=== PATIENT | female | born 1990 | race Caucasian/White ===

== ENCOUNTER 2016-12-23 23:08 | Emergency (ER) | payer MEDICAID ==
[2016-12-24] MEDS ORDERED: NORMAL SALINE 1000 ML 1,000 ML IV ONE ×3 (04:09→06:52)
[2016-12-24] MEDS ORDERED: DIPHENHYDRAMINE HCL 50 MG/ML VIAL IV ONE (04:09)
[2016-12-24] MEDS ORDERED: METOCLOPRAMIDE HCL INJ/PF 10 MG/2 ML SDV IV ONE (04:09)
--- NOTE | 2016-12-24 04:32 | ER Document Report ---
ED GI/ - General Chief Complaint: Nausea/Vomiting Stated Complaint: VOMITING Notes: Patient is a 26 year old female that comes emergency department for chief complaint of nausea and vomiting, she is at about 3-4 weeks reportedly , , has seen [facility] and has begun taking Zofran but states this time it does not work. Patient has had this problem in the past. She denies any vaginal bleeding, fever, she states she has mild congestion of a cold which has also developed today. She denies cough or shortness of breath. TRAVEL OUTSIDE OF THE [place] IN LAST 30 DAYS: No - Related Data Allergies/Adverse Reactions: No Known Allergies Allergy (Verified 12/23/16 23:22) Past Medical History - General Information source: Patient - Social History Smoking Status: Never Smoker Frequency of alcohol use: None Drug Abuse: None Lives with: Family Family History: Reviewed & Not Pertinent Renal/ Medical History: Reports: Hx Kidney Stones. Denies: Hx Peritoneal Dialysis Past Surgical History: Reports: Hx Orthopedic Surgery - shoulder - Immunizations Immunizations up to date: Yes Hx Diphtheria, Pertussis, Tetanus Vaccination: Yes Review of Systems - Review of Systems Constitutional: No symptoms reported EENT: No symptoms reported Cardiovascular: No symptoms reported Respiratory: No symptoms reported Gastrointestinal: See HPI Genitourinary: No symptoms reported Female Genitourinary: See HPI Musculoskeletal: No symptoms reported Skin: No symptoms reported Hematologic/Lymphatic: No symptoms reported Neurological/Psychological: No symptoms reported Physical Exam - Vital signs Vitals: Temp Pulse BP Pulse Ox 98.4 F 65 118/56 L 99 12/23/16 23:23 12/23/16 23:23 12/23/16 23:23 12/23/16 23:23 Interpretation: Normal - General General appearance: Appears well, Alert In distress: None - Patient appears tired but does not appear to be in any distress - HEENT Head: Normocephalic, Atraumatic Eyes: Normal Conjunctiva: Normal Extraocular movements intact: Yes Eyelashes: Normal Pupils: PERRL Mucous membranes: Dry Pharynx: Normal Neck: Normal - Respiratory Respiratory status: No respiratory distress Chest status: Nontender Breath sounds: Normal Chest palpation: Normal - Cardiovascular Rhythm: Regular. No: Tachycardia Heart sounds: Normal auscultation, S1 appreciated, S2 appreciated Murmur: No - Abdominal Inspection: Normal Distension: No distension Bowel sounds: Normal Tenderness: Tender - Patient with generalized abdominal tenderness, mild, nonspecific, no guarding Organomegaly: No organomegaly - Back Back: Normal, Nontender. No: Tender - Extremities General upper extremity: Normal inspection, Nontender, Normal strength, Normal temperature General lower extremity: Normal inspection, Nontender, Normal strength, Normal temperature - Neurological Neuro grossly intact: Yes Cognition: Normal Orientation: AAOx4 [place] Coma Scale Eye Opening: Spontaneous [place] Coma Scale Verbal: Oriented [place] Coma Scale Motor: Obeys Commands Corin Coma Scale Total: 15 Speech: Normal Cranial nerves: Normal Cerebellar coordination: Normal Motor strength normal: LUE, RUE, LLE, RLE Additional motor exam normals: Equal manganese breaker Sensory: Normal - Psychological Associated symptoms: Normal affect, Normal mood - Skin Skin Temperature: Warm Skin Moisture: Dry Skin Color: Normal Course - Re-evaluation Re-evalutation: Patient not tachycardic, has very mild abdominal tenderness, laboratory workup is unremarkable. No fever. After IV fluids, medications, patient states she feels much improved, she drank and tolerated rome donald without any difficulty. Patient is requesting to leave, has not given a urine sample yet, however she is requesting to leave. No dysuria or flank pain, no fever. Provided with Reglan, follow-up instructions: Return precautions, patient states understanding and agreement. - Vital Signs Vital signs: Temp Pulse Resp BP Pulse Ox 98.4 F 65 118/56 L 99 12/23/16 23:23 12/23/16 23:23 12/23/16 23:23 12/23/16 23:23 - Laboratory Result Diagrams: 12/24/16 04:40 12/24/16 04:40 Laboratory results interpreted by me: 12/24/16 12/24/16 04:40 04:40 Hct 35.9 L Creatinine 0.44 L Beta HCG, Quant 099209.00 H Discharge - Discharge Clinical Impression: Nausea and vomiting during prior to 22 weeks gestation Condition: Stable Disposition: HOME, SELF-CARE Additional Instructions: Take the Reglan as prescribed, I recommend taking 25 mg of diphenhydramine/ Benadryl with this at the same time Start with bland foods, continue to hydrate, follow up with [facility]. Return to the emergency department for any concerning or worsening symptoms. Prescriptions: Metoclopramide HCl [Reglan] 5 mg PO ASDIR PRN #30 tablet PRN Reason:
[2016-12-24 04:54] LABS: ABSOLUTE EOSINOPHILS # (AUTO) 0.2 10^3/uL (0.0-0.6); ABSOLUTE LYMPHOCYTES (AUTO) 2.9 10^3/uL (0.5-4.7); ABSOLUTE MONOCYTES (AUTO) 0.6 10^3/uL (0.1-1.4); ABSOLUTE NEUT (AUTO) 5.7 10^3/uL (1.7-8.2); BASOPHILS % (AUTO) 0.5 % (0-2); EOSINOPHILS % (AUTO) 2.1 % (0-6); HEMATOCRIT 35.9 % (36.0-47.0); HEMOGLOBIN 12.3 g/dL (12.0-15.5); LYMPHOCYTES % (AUTO) 30.8 % (13-45); MEAN CORPUSCULAR HEMOGLOBIN 30.8 pg (27.0-33.4); MEAN CORPUSCULAR HGB CONC 34.1 g/dL (32.0-36.0); MEAN CORPUSCULAR VOLUME 90 fl (80-97); MONOCYTES % (AUTO) 5.9 % (3-13); RED BLOOD COUNT 3.98 10^6/uL (3.72-5.28); RED CELL DISTRIBUTION WIDTH 12.4 % (11.5-14.0); SEGMENTED NEUTROPHILS % (AUTO) 60.7 % (42-78); WHITE BLOOD COUNT 9.5 10^3/uL (4.0-10.5)
[2016-12-24 05:14] LABS: ALANINE AMINOTRANSFERASE 29 U/L (9-52); ALBUMIN 3.8 g/dL (3.5-5.0); ALKALINE PHOSPHATASE 58 U/L (38-126); ANION GAP 13 (5-19); ASPARTATE AMINO TRANSFERASE 19 U/L (14-36); BILIRUBIN,DIRECT 0.3 mg/dL (0.0-0.4); BILIRUBIN,TOTAL 0.6 mg/dL (0.2-1.3); BLOOD UREA NITROGEN 8 mg/dL (7-20); CALCIUM 9.3 mg/dL (8.4-10.2); CARBON DIOXIDE 24 mmol/L (22-30); CHLORIDE 102 mmol/L (98-107); CREATININE RESULT 0.44 mg/dL (0.52-1.25); GLUCOSE 93 mg/dL (75-110); SODIUM 138.5 mmol/L (137-145); TOTAL PROTEIN 6.6 g/dL (6.3-8.2)
[2016-12-24 08:08] VITALS: BP 90/50
== END 2016-12-24 07:35 | disposition home or self-care (01) ==
LOC: ER 23:08
DX: O21.9 Vomiting of pregnancy, unspecified (principal); Z87.442 Personal history of urinary calculi
CPT/HCPCS: 99284; 96361; 96374; 96375; 36415; 84702; 85025; 80053; J1200; J2765; J7030

== ENCOUNTER 2017-05-24 10:32 | Outpatient (CLI) | payer MEDICAID ==
[2017-05-24 11:46] LABS: APPEARANCE,URINE SLIGHTLY-CLOUDY; BILIRUBIN,URINE NEGATIVE (NEGATIVE); GLUCOSE, URINE NEGATIVE (NEGATIVE); KETONES,URINE NEGATIVE (NEGATIVE); LEUKOCYTE ESTERASE,URINE NEGATIVE (NEGATIVE); NITRITE,URINE NEGATIVE (NEGATIVE); PROTEIN,URINE NEGATIVE (NEGATIVE)
[2017-05-24] MEDS ORDERED: ONDANSETRON 4 MG TAB.RAPDIS ONE (11:58)
[2017-05-24 12:08] LABS: URINE BARBITURATES SCREEN NEGATIVE; URINE METHADONE SCREEN NEGATIVE; URINE OPIATES LOW NEGATIVE; URINE PHENCYCLIDINE SCREEN NEGATIVE
--- NOTE | 2017-05-24 12:41 | Non Stress Test Report ---
Non Stress Test Datetime Report Generated by CPN: 05/24/2017 12:41 DEMOGRAPHIC EGA NST: 33.5 INDICATION Indication for Study: Ordered by Provider MONITORING Monitor Explained: Monitor Explained; Test Explained; Patient Verbalized Understanding Time on Monitor: 05/24/2017 11:11 Time off Monitor: 05/24/2017 12:37 NST Duration: 86 NST INTERVENTIONS NST Interventions: PO Hydration; Reposition Patient Physician Notified NST: J. Carlos, CNM BABY A: [id number] BABY A Movement : Present Contraction Frequency : Irritability FHR Baseline : 125 Accelerations : 15X15 Decelerations : None Variability : Moderate 6-25bpm NST Review: Meets Criteria for Reactive NST NST Review and Verified By : Juanita camp RNC NST Results: Reactive NST REPORT Report Trigger: Send Report
== END 2017-05-24 12:45 | disposition home or self-care (01) ==
LOC: LC 10:32
PROVIDERS: ATTEND Student in an Organized Health Care Education/Training Program
PROC: 4A1HXCZ Monitoring of Products of Conception, Cardiac Rate, External Approach (ICD-10-PCS; principal; 2017-05-24)
DX: O21.2 Late vomiting of pregnancy (principal); E86.0 Dehydration; Z3A.33 33 weeks gestation of pregnancy
CPT/HCPCS: 81001; 80307; 59025; S0119

== ENCOUNTER 2017-05-29 17:38 | Outpatient (CLI) | payer MEDICAID ==
--- NOTE | 2017-05-29 18:38 | Non Stress Test Report ---
Non Stress Test Datetime Report Generated by CPN: 05/29/2017 18:38 DEMOGRAPHIC EGA NST: 34.3 INDICATION Indication for Study: Ordered by Provider Indication for Study (NST) Other: Repeat MONITORING Monitor Explained: Monitor Explained; Test Explained; Patient Verbalized Understanding Time on Monitor: 05/29/2017 18:03 Time off Monitor: 05/29/2017 18:33 NST Duration: 30 NST INTERVENTIONS NST Interventions: PO Hydration; Reposition Patient Physician Notified NST: Dr. Carrera BABY A: [id number] BABY A Movement : Present Contraction Frequency : none FHR Baseline : 135 Accelerations : 15X15 Decelerations : None Variability : Moderate 6-25bpm NST Review: Meets Criteria for Reactive NST NST Review and Verified By : Eladia Bellavanctonya RNC NST Results: Reactive NST REPORT Report Trigger: Send Report
== END 2017-05-29 18:37 | disposition home or self-care (01) ==
LOC: LC 17:38
PROVIDERS: ATTEND Student in an Organized Health Care Education/Training Program
PROC: 4A1HXCZ Monitoring of Products of Conception, Cardiac Rate, External Approach (ICD-10-PCS; principal; 2017-05-29)
DX: Z34.93 Encounter for supervision of normal pregnancy, unspecified, third trimester (principal); Z36.89 Encounter for other specified antenatal screening; Z3A.34 34 weeks gestation of pregnancy
CPT/HCPCS: 59025

== ENCOUNTER 2017-07-14 18:05 | Inpatient (IN) | payer MEDICAID ==
[2017-07-14] MEDS ORDERED: RINGERS SOLUTION,LACTATED 1,000 ML IV PRN (18:17)
[2017-07-14] MEDS ORDERED: DINOPROSTONE 10 MG VAGINAL INSERT.SR PV PRN (18:17)
[2017-07-14] MEDS ORDERED: RINGERS SOLUTION,LACTATED 300 ML IV ONE (18:17)
[2017-07-14] MEDS ORDERED: OXYTOCIN/NORMAL SALINE 20 UNIT/1,000 ML RTUINJ IV PRN (18:17)
[2017-07-14 18:50] LABS: ABSOLUTE BASOPHILS # (AUTO) 0.1 10^3/uL (0.0-0.2); ABSOLUTE EOSINOPHILS # (AUTO) 0.4 10^3/uL (0.0-0.6); ABSOLUTE LYMPHOCYTES (AUTO) 4.6 10^3/uL (0.5-4.7); ABSOLUTE MONOCYTES (AUTO) 0.8 10^3/uL (0.1-1.4); ABSOLUTE NEUT (AUTO) 8.7 10^3/uL (1.7-8.2); BASOPHILS % (AUTO) 0.6 % (0-2); EOSINOPHILS % (AUTO) 2.8 % (0-6); HEMATOCRIT 32.6 % (36.0-47.0); HGB HCT DIFFERENCE 0.4; LYMPHOCYTES % (AUTO) 31.6 % (13-45); MEAN CORPUSCULAR HEMOGLOBIN 30.3 pg (27.0-33.4); MEAN CORPUSCULAR HGB CONC 33.8 g/dL (32.0-36.0); MEAN CORPUSCULAR VOLUME 90 fl (80-97); MONOCYTES % (AUTO) 5.7 % (3-13); RED BLOOD COUNT 3.64 10^6/uL (3.72-5.28); RED CELL DISTRIBUTION WIDTH 12.4 % (11.5-14.0); SEGMENTED NEUTROPHILS % (AUTO) 59.3 % (42-78); WHITE BLOOD COUNT 14.6 10^3/uL (4.0-10.5)
[2017-07-14] MEDS ORDERED: DINOPROSTONE 10 MG VAGINAL INSERT.SR ONE (19:30)
[2017-07-14 19:38] LABS: APPEARANCE,URINE CLEAR; BILIRUBIN,URINE NEGATIVE (NEGATIVE); GLUCOSE, URINE NEGATIVE (NEGATIVE); KETONES,URINE TRACE mg/dL (NEGATIVE); LEUKOCYTE ESTERASE,URINE NEGATIVE (NEGATIVE); NITRITE,URINE NEGATIVE (NEGATIVE); PROTEIN,URINE 30 mg/dL (NEGATIVE)
[2017-07-14 19:58] LABS: URINE BARBITURATES SCREEN NEGATIVE; URINE METHADONE SCREEN NEGATIVE; URINE OPIATES LOW NEGATIVE; URINE PHENCYCLIDINE SCREEN NEGATIVE
[2017-07-14] MEDS ORDERED: PENICILLIN G-K 5 MILLION UNIT VIAL IV PRN (21:35)
[2017-07-15] MEDS ORDERED: PENICILLIN G POTASSIUM 2,500,000 UNIT in DEXTROSE 5%-WATER 50 ML IV SCH (01:20)
[2017-07-15] MEDS ORDERED: PENICILLIN G POTASSIUM 5,000,000 UNIT in DEXTROSE 5%-WATER 100 ML IV ONE (09:15)
[2017-07-15] MEDS ORDERED: MISOPROSTOL 0.2 MG TABLET ONE (10:03)
[2017-07-15] MEDS ORDERED: OXYTOCIN/NORMAL SALINE 20 UNIT/1,000 ML RTUINJ ONE (10:03)
[2017-07-15] MEDS ORDERED: LIDOCAINE 1% INJ-PF (10 MG/ML) 30 ML SDV ONE (10:03)
[2017-07-15] MEDS ORDERED: PENICILLIN G-K 5 MILLION UNIT VIAL ONE ×2 (10:30→13:03)
[2017-07-15] MEDS ORDERED: EPHEDRINE SULFATE INJ 50 MG/1 ML AMPULE ONE (11:47)
[2017-07-15] MEDS ORDERED: FENTANYL/BUPIVACAINE/NS/PF 200 MCG/100 ML RTUINJ EPI ONE (11:47)
[2017-07-15] MEDS ORDERED: BUPIVACAINE HCL 0.25 % INJ/PF (2.5 MG/1 ML) 30 ML VIAL ONE (11:48)
--- NOTE | 2017-07-15 14:11 | L&D Progress Notes ---
PROGRESS NOTES Datetime Report Generated by CPN: 07/15/2017 14:10 PROGRESS NOTE Impression: Normal Progression of Labor Procedures: Artificial ROM; Sterile Vag Exam Plan: Continue Present Management; Induction Informed Consent Obtained: Vaginal Delivery; Risks, Benefits and Alternatives Discussed Vital Signs : Reviewed; Within Normal Limits Comment: Here for Post CATA IOL at 41+1ega. Recieved cervidil overnight and then was 5cm this am. Pt is now recieving 2nd dose of PCN for GBS and is comfortable with epidural. Cvx 6/80/-1. AROM with clear fluid. WIll begin pitocin and continue with IOL. Anticpate . EFW 7#. Pelvis proven to 7#8oz VAGINAL EXAM Dilatation: 6 Effacement: 80 Station: -1 Contractions: irregular MEMBRANES Membranes: Ruptured Amniotic Fluid Color: Clear FETUS A FHR - Baseline: 125 Monitoring: External US Accelerations: 15X15 Decelerations: None FHR Category: Category I SIGNATURE SIGNATURE: [id number];[id number] SIGNATURE: [id number] SIGNATURE: [id number] Signature: with User ID: [email or web address]
[2017-07-15] MEDS ORDERED: MEASLES,MUMPS&RUBELLA VACC/PF 0.5 ML VIAL SUBCUT PRN (17:05)
[2017-07-15] MEDS ORDERED: BENZOCAINE/MENTHOL AEROSOL SPRAY 56 ML TOP PRN (17:05)
[2017-07-15] MEDS ORDERED: NA PHOS,M-B/NA PHOS,DI-BA (ADULT) 133 ML ENEMA PR PRN (17:05)
[2017-07-15] MEDS ORDERED: PROMETHAZINE HCL 25 MG SUPP.RECT PR PRN (17:05)
[2017-07-15] MEDS ORDERED: PSEUDOEPHEDRINE HCL 30 MG TABLET PO PRN (17:05)
[2017-07-15] MEDS ORDERED: DIPH/PERTUSS(ACELL)/TETANUS VAC/PF 0.5 ML SYR (>=10YO) IM PRN (17:05)
[2017-07-15] MEDS ORDERED: DIPHENHYDRAMINE HCL 25 MG CAPSULE PO PRN (17:05)
[2017-07-15] MEDS ORDERED: PROMETHAZINE HCL 25 MG TABLET PO PRN (17:05)
[2017-07-15] MEDS ORDERED: OXYTOCIN/NORMAL SALINE 20 UNIT/1,000 ML RTUINJ IV PRN (17:05)
[2017-07-15] MEDS ORDERED: MAGNESIUM HYDROXIDE SUSP 30 ML UDCUP PO PRN (17:05)
[2017-07-15] MEDS ORDERED: PROMETHAZINE HCL INJ 25 MG/1 ML VIAL IV PRN (17:05)
[2017-07-15] MEDS ORDERED: DIBUCAINE 1% OINTMENT 28 GM TP PRN (17:05)
[2017-07-15] MEDS ORDERED: GLYCERIN/WITCH HAZEL LEAF 1 EACH MED..PAD TP PRN (17:05)
[2017-07-15] MEDS ORDERED: ACETAMINOPHEN WITH CODEINE #3 TABLET PO PRN (17:05)
[2017-07-15] MEDS ORDERED: ACETAMINOPHEN 650 MG SUPP.RECT PR PRN (17:05)
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
[2017-07-15] MEDS: DOCUSATE SODIUM 100 MG CAPSULE PO SCH (20:17)
[2017-07-15] MEDS: FERROUS SULFATE 325 MG TABLET PO SCH (20:17)
[2017-07-15] MEDS: FAMOTIDINE 20 MG TABLET PO SCH (21:06)
[2017-07-15] MEDS: IBUPROFEN 800 MG TABLET PO SCH (21:06)
[2017-07-16] MEDS: IBUPROFEN 800 MG TABLET PO SCH ×3 (05:55→21:23)
[2017-07-16 07:26] LABS: HEMATOCRIT 27.9 % (36.0-47.0); HEMOGLOBIN 9.5 g/dL (12.0-15.5); HGB HCT DIFFERENCE 0.6; MEAN CORPUSCULAR HEMOGLOBIN 30.1 pg (27.0-33.4); MEAN CORPUSCULAR HGB CONC 33.9 g/dL (32.0-36.0); MEAN CORPUSCULAR VOLUME 89 fl (80-97); RED BLOOD COUNT 3.15 10^6/uL (3.72-5.28); WHITE BLOOD COUNT 11.3 10^3/uL (4.0-10.5)
--- NOTE | 2017-07-16 07:57 | Delivery Summary ---
Del Sum A-C Datetime Report Generated by CPN: 07/16/2017 07:57 DELIVERY PERSONNEL DELIVERY PERSONNEL: [id number] Delivery Doctor:: Tatum Franklin CNM Labor and Delivery Nurse:: Aster Douglas RNelectronic warfare officer Nurse:: ALEJANDRA Conteh Additional Personnel: : Opal Ernst, RN MATERNAL INFORMATION Delivery Anesthesia: Epidural Medications After Delivery: Pitocin Bolus-Please Comment Meds After Delivery Comment: pitocin 20 units in 1L NS, bolusing per order Estimated Blood Loss (ml): 100 Maternal Complications: None Provider Comments: Pt. with earlies, variables and perineal pressure; went in room to evaluate and noted to be c/c/+1. Saab removed and began pushing, quickly delivered a viable baby girl in ADRIANA position. Baby placed on maternal abdomen with vigorous respiratory effort and cry spontaneously at . Cord allowed to stop pulsating then clamped x2 and cut by FOB. Placenta delivered spontaneously intact (3vc noted). Fundus firm at U-2, bleeding stable. Vaginal and perineal inspections revealed no lacerations and a small abrasion as noted above. Mother and baby remain in room skin to skin and bonding at this time. LABOR SUMMARY EDC: 07/07/2017 00:00 No. Babies in Womb: 1 Attempted: No Labor Anesthesia: Epidural LABOR INFORMATION Reason for Induction: Post Dates Onset of Labor: 07/15/2017 10:29 Complete Dilatation: 07/15/2017 16:28 Cervical Ripening Agents: Cervidil Oxytocin: Augmentation Group B Beta Strep: positive (Annotations: Data stored by CPN on behalf of user) Antibiotics # of Doses: 2 Antibiotics Time of Last Dose: 1335 Name of Antibiotic Given: PCN Steroids Given: None Reason Steroids Not Administered: Not Applicable MEMBRANES Membranes Rupture Method: Artificial Rupture of Membranes: 07/15/2017 14:21 Length of Rupture (hr): 2.52 Amniotic Fluid Color: Clear Amniotic Fluid Amount: Small Amniotic Fluid Odor: Normal STAGES OF LABOR Stage 1 hr: 5 Stage 1 min: 59 Stage 2 hr: 0 Stage 2 min: 24 Stage 3 hr: 0 Stage 3 min: 5 Total Time in Labor hr: 6 Total Time in Labor min: 28 VAGINAL DELIVERY Episiotomy: None Laceration #1: None Laceration #2: None Laceration #3: None Laceration Repair: Not Applicable Laceration Repair Note: small perineal abrasion-no bleeding, no repair needed Sponge Count Correct: N/A Sharps Count Correct: N/A Sharps Count Correct: N/A CSECTION DELIVERY Primary Indication: N/A Secondary Indication: N/A CSection Incidence: N/A Labor: N/A Elective: N/A CSection Incision: N/A BABY A INFORMATION Infant Delivery Date/Time: 07/15/2017 16:52 Method of Delivery: Vaginal Born in Route : No : N/A Forceps: N/A Vacuum Extraction: N/A Shoulder Dystocia : No PRESENTATION/POSITION BABY A Presentation: Cephalic Cephalic Presentation: Vertex Vertex Position: Left Occipital Anterior Breech Presentation: N/A PLACENTA INFORMATION BABY A Placenta Delivery Time : 07/15/2017 16:57 Placenta Method of Delivery: Spontaneous Placenta Status: Delivered SCORES BABY A Heart Rate 1 min: >100 bpm Resp Effort 1 min: Good Cry Reflex Irritability 1 min: Cough or Sneeze or Pulls Away Muscle Tone 1 min: Active Motion Color 1 min: Body [place], Extremities Blue Resuscitation Effort 1 min: Tactile Stimulation SCORE 1 MIN: 9 Heart Rate 5 min: >100 bpm Resp Effort 5 min: Good Cry Reflex Irritability 5 min: Cough or Sneeze or Pulls Away Muscle Tone 5 min: Active Motion Color 5 min: Completely [place] Resuscitation Effort 5 min: Tactile Stimulation SCORE 5 MIN: 10 Heart Rate 10 min: >100 bpm Resp Effort 10 min: Good Cry Reflex Irritability 10 min: Cough or Sneeze or Pulls Away Muscle Tone 10 min: Active Motion Color 10 min: Completely [place] SCORE 10 MIN: 10 INFORMATION BABY A Gestational Age at Delivery: 41.1 Gestational Status: Late Term- 41- 41.6 Weeks Infant Outcome : Liveborn Condition : Stable Sex: Female IDENTIFICATION BABY A Verification Date/Time: 07/15/2017 17:05 ID Band Number: [id number] Mother's Name Verified: Yes RN Verifying : FREDERICK VALIENTE, RN Additional Verifying Personnel: D JAMMIE, US WEIGHT/LENGTH BABY A Birthweight (gm): 3650 Infant Weight (lb): 8 Infant Weight (oz): 1 Length (in): 20.50 Infant Length (cm): 52.07 CORD INFORMATION BABY A No. Cord Vessels: 3 Nuchal Cord : N/A Cord Blood Taken: Yes-For Storage (Mom's Blood type +) Infant Suction: None ASSESSMENT BABY A Infant Complications: None Physical Findings at Delivery: Bruising Physical Findings- Other: bruising on face Respirations: Appears Normal Skin to Skin: Yes Skin to Skin Time (min): 45 Bin Tripper Operator/ALS Called : No Care By: Eladia Pina RN Transferred To: Remains with Mother BABY B INFORMATION : N/A SIGNATURES Assignment: Sadie Carrera MD Signature: with User ID: Tony : with User ID: Tony
[2017-07-16] MEDS: FAMOTIDINE 20 MG TABLET PO SCH ×2 (09:57→21:23)
[2017-07-16] MEDS: SENNOSIDES/DOCUSATE 8.6-50 MG 1 EACH TABLET PO SCH (09:57)
[2017-07-16] MEDS: PRENATAL VITAMIN W DHA CAPSULE PO SCH (09:58)
[2017-07-16] MEDS: DOCUSATE SODIUM 100 MG CAPSULE PO SCH ×2 (09:58→17:30)
[2017-07-16] MEDS: FERROUS SULFATE 325 MG TABLET PO SCH ×2 (09:58→17:30)
[2017-07-16] MEDS ORDERED: (PENDING PHARMACY ID) (Buprenorphine Hcl [Subutex 8 Mg Sublingual Tablet] 1 TAB) SL SCH (10:00)
[2017-07-16] MEDS: BUPRENORPHINE HCL SL SCH ×2 (10:02→17:29)
--- NOTE | 2017-07-16 10:42 | PDOC PROGRESS REPORT ---
Subjective-OB Subjective: Post Delivery Day: 26 year old. Denies any needs at this time, states lochia is stable, pain well controlled, voiding without difficulty. Physical Exam (OB) Vital Signs: Temp Pulse Resp BP Pulse Ox 97.6 F 54 L 17 105/51 L 99 07/16/17 07:44 07/16/17 07:44 07/16/17 07:44 07/16/17 07:44 07/16/17 07:44 Intake & Output 07/15/17 07/16/17 07/17/17 06:59 06:59 06:59 Weight 66.3 kg - Lochia Lochia Amount: Scant < 10 ml Lochia Color: Rubra/Red - Abdomen Description: Tender, Soft Hernia Present: No Fundal Description: Firm, Midline Fundal Height: u/u - u/2 Objective-Diagnostic Laboratory: 07/16/17 07:11 07/16/17 07:11 WBC 11.3 H RBC 3.15 L Hgb 9.5 L Hct 27.9 L MCV 89 MCH 30.1 MCHC 33.9 RDW 12.0 Plt Count 181 Assessment and Plan(PN) - Assessment and Plan (1) Acute blood loss anemia Is this a current diagnosis for this admission?: Yes Plan: ferrous sulfate increase dietary iron (2) Delivery normal Is this a current diagnosis for this admission?: Yes Plan: routine pp care - Time Spent with Patient Time with patient: Less than 15 minutes Critical Time spent with patient: Less than 15 minutes Medications reviewed and adjusted accordingly: Yes - Disposition Anticipated Discharge: Home Within: within 24 hours
--- NOTE | 2017-07-16 15:25 | PDOC DISCHARGE SUMMARY ---
<ROSA LEY - Last Filed: 07/16/17 15:20> Final Diagnosis - Final Diagnosis (1) Acute blood loss anemia Is this a current diagnosis for this admission?: Yes (2) Delivery normal Is this a current diagnosis for this admission?: Yes Discharge Data - Discharge Medication Home Medications: Buprenorphine HCl [Subutex 8 mg Sublingual Tablet] 1 tab SL BID 05/24/17 Vit/Iron Fum/Folic AC [ Tablet] 1 each PO DAILY 05/24/17 Docusate Sodium [Colace 100 mg Capsule] 100 mg PO BID #60 capsule 07/16/17 Ferrous Sulfate [Feosol 325 mg Tablet] 325 mg PO BID #60 tablet 07/16/17 Ibuprofen [Motrin 800 mg Tablet] 800 mg PO Q8 #60 tablet 07/16/17 Gestational Age: 41.1 Reason(s) for Admission: Induction of Labor, Group B Strep Positive - subutex Procedures: NST Intrapartum Procedure(s): Spontaneous Vaginal Delivery - [place] Data Baby 1 Female at 1 minute: 9 at 5 minutes: 10 Weight: 3650 kg Complications: Yes - mom on subutex - Diagnosis Test Laboratory: Temp Pulse Resp BP Pulse Ox 97.6 F 54 L 17 105/51 L 99 07/16/17 07:44 07/16/17 07:44 07/16/17 07:44 07/16/17 07:44 07/16/17 07:44 07/14/17 07/14/17 07/16/17 18:27 18:35 07:11 RBC 3.64 L 3.15 L Hgb 11.0 L 9.5 L Hct 32.6 L 27.9 L Urine Opiates Screen NEGATIVE - Discharge information/Instructions Discharge Activity: Activity As Tolerated, Pelvic Rest, No tub bath Discharge Diet: Regular Disposition: HOME, SELF-CARE Follow up with: [facility] in: 4, Weeks <KELSEY EVANS - Last Filed: 07/17/17 12:21> Final Diagnosis Discharge Date: 07/17/17 Discharge Data - Diagnosis Test Laboratory: Temp Pulse Resp BP Pulse Ox 97.8 F 62 14 107/52 L 99 07/17/17 07:56 07/17/17 07:56 07/17/17 07:56 07/17/17 07:56 07/17/17 07:56 07/14/17 07/14/17 07/16/17 18:27 18:35 07:11 RBC 3.64 L 3.15 L Hgb 11.0 L 9.5 L Hct 32.6 L 27.9 L Urine Opiates Screen NEGATIVE
[2017-07-17] MEDS: IBUPROFEN 800 MG TABLET PO SCH (05:40)
[2017-07-17 08:26] VITALS: BP 107/52
[2017-07-17] MEDS: PRENATAL VITAMIN W DHA CAPSULE PO SCH (10:24)
[2017-07-17] MEDS: DOCUSATE SODIUM 100 MG CAPSULE PO SCH (10:24)
[2017-07-17] MEDS: SENNOSIDES/DOCUSATE 8.6-50 MG 1 EACH TABLET PO SCH (10:24)
[2017-07-17] MEDS: FAMOTIDINE 20 MG TABLET PO SCH (10:24)
[2017-07-17] MEDS: FERROUS SULFATE 325 MG TABLET PO SCH (10:25)
[2017-07-17] MEDS: BUPRENORPHINE HCL SL SCH (10:25)
== END 2017-07-17 14:00 | disposition home or self-care (01) | DRG 775 ==
LOC: LR 18:05 → 2S 07-15 18:33
PROVIDERS: ADMIT Obstetrics & Gynecology Gynecology; ATTEND Obstetrics & Gynecology Gynecology
PROC: 4A1HXCZ Monitoring of Products of Conception, Cardiac Rate, External Approach (ICD-10-PCS; 2017-07-14)
PROC: 10E0XZZ Delivery of Products of Conception, External Approach (ICD-10-PCS; principal; 2017-07-15)
PROC: 10907ZC Drainage of Amniotic Fluid, Therapeutic from Products of Conception, Via Natural or Artificial Opening (ICD-10-PCS; 2017-07-15)
PROC: 3E0P7GC Introduction of Other Therapeutic Substance into Female Reproductive, Via Natural or Artificial Opening (ICD-10-PCS; 2017-07-15)
DX: O48.0 Post-term pregnancy (principal); D62 Acute posthemorrhagic anemia; O99.824 Streptococcus B carrier state complicating childbirth; O99.02 Anemia complicating childbirth; O99.334 Smoking (tobacco) complicating childbirth; F17.210 Nicotine dependence, cigarettes, uncomplicated; O99.513 Diseases of the respiratory system complicating pregnancy, third trimester; J45.909 Unspecified asthma, uncomplicated; Z28.20 Immunization not carried out because of patient decision for unspecified reason; Z3A.41 41 weeks gestation of pregnancy; Z37.0 Single live birth
CPT/HCPCS: 36415; 80307; 81005; 85025; 85027; 86592; 86850; 86900; 86901; 94760; J2540; J2590; J3490

== ENCOUNTER 2018-01-24 04:04 | Emergency (ER) | payer MEDICAID ==
--- NOTE | 2018-01-24 04:30 | ER Document Report ---
HPI - HPI Patient complains to provider of: sore throat Pain Level: 5 Context: Patient is a 27 year old female who presents to the ED complaining of sore throat for the past 1.5 days. She admits to painful swallowing, yoandy muffled speech, fever, rhinitis. Admits to dry cough and wheezing with h/o asthma and current smoker., h/o strep - REPRODUCTIVE Reproductive: REPORTS: : Past Medical History - Social History Smoking Status: Current Every Day Smoker Family History: Reviewed & Not Pertinent Renal/ Medical History: Reports: Hx Kidney Stones. Denies: Hx Peritoneal Dialysis Past Surgical History: Reports: Hx Orthopedic Surgery - shoulder - Immunizations Immunizations up to date: Yes Hx Diphtheria, Pertussis, Tetanus Vaccination: Yes Vertical Provider Document - CONSTITUTIONAL Agree With Documented VS: Yes Notes: PHYSICAL EXAM GENERAL: Alert, interacts well. HEENT: NCAT, pale conjunctiva, extraocular movements intact, pupils PERRL. external ear normal, no evidence of external auditory canal tenderness, blood/ drainage, cerumen impaction, TM intact without evidence of effusion, bulging, injection, MMM, Uvula midline and inflamed. Airway patent. Mild tonsillar enlargement and erythema without, peritonsillar abscess, retropharyngeal abscess. LUNGS: Wheezes and rhonchi noted bilaterally. rales, or rhonchi. No respiratory distress. HEART: Regular rate and rhythm. No murmurs, gallops, or rubs. NEUROLOGICAL: Alert and oriented x4. Normal speech. PSYCH: Normal affect, normal mood. SKIN: Warm, dry, normal turgor. No rashes or lesions noted. - INFECTION CONTROL TRAVEL OUTSIDE OF THE [place] IN LAST 30 DAYS: No Course - Re-evaluation Re-evalutation: 01/24/18 05:41 Presentation of several days of sore throat in an otherwise well-appearing patient. Rapid strep is positive. History and exam are not consistent with a retropharyngeal abscess or peritonsillar abscess. Airway is patent. No difficulty handling oral secretions. Vitals within normal limits. Patient has been treated with an IM dose of penicillin. At this time will discharge with return precautions and follow-up recommendations. Verbal discharge instructions given a the bedside and opportunity for questions given. Medication warnings reviewed. Patient is in agreement with this plan and has verbalized understanding of return precautions and the need for primary care follow-up in the next week. - Vital Signs Vital signs: Temp Pulse Resp BP Pulse Ox 98.9 F 74 20 103/52 L 98 01/24/18 04:04 01/24/18 04:04 01/24/18 04:04 01/24/18 04:04 01/24/18 04:04 Discharge - Discharge Clinical Impression: Strep pharyngitis Asthma Qualifiers: Asthma severity: mild Asthma persistence: intermittent Asthma complication type : uncomplicated Qualified Code(s): J45.20 - Mild intermittent asthma, uncomplicated Condition: Good Disposition: HOME, SELF-CARE Additional Instructions: You have been diagnosed with strep throat based on a positive strep test. You have been treated with a dose of penicillin here in the emergency department and do not need any additional antibiotics. You have also been given a dose of steroids to help with your throat discomfort. Please continue to take ibuprofen 600 mg every 6 hours or Tylenol 1000 mg every 6 hours as needed for throat discomfort. You can also gargle with salt water. Continue to drink plenty of fluids. Follow-up with your primary care doctor in the next several days. Return if you become unable to swallow, have difficulty breathing, pass out, have persistent vomiting that prevents you from being able to tolerate fluids, or have any other symptoms that are concerning to you. Prescriptions: Albuterol Sulfate [Proair HFA Inhalation Aerosol 8.5 gm MDI] 2 puff IH Q4H PRN # 1 mdi PRN Reason: Referrals: GENA SHER MD [ACTIVE STAFF] - Follow up in 1 week
[2018-01-24] MEDS ORDERED: LIDOCAINE 2% VISCOUS SOLN 20 ML UDCUP PO ONE (04:36)
[2018-01-24] MEDS ORDERED: ALBUTEROL SULFATE 0.083% NEB 2.5 MG/3 ML AMPUL NEB ONE (04:36)
[2018-01-24] MEDS ORDERED: IBUPROFEN 800 MG TABLET PO ONE (04:37)
[2018-01-24] MEDS ORDERED: PENICILLIN G BENZATHINE 1.2 MILLION UNIT/2 ML DISP.SYRIN IM ONE (05:41)
[2018-01-24] MEDS ORDERED: DEXAMETHASONE SOD PHOS INJ 10 MG/1 ML VIAL IM ONE (05:41)
[2018-01-24 06:59] VITALS: BP 98/52
== END 2018-01-24 07:02 | disposition home or self-care (01) ==
LOC: ER 04:04
DX: J02.0 Streptococcal pharyngitis (principal); J45.20 Mild intermittent asthma, uncomplicated; R13.10 Dysphagia, unspecified; R05 Cough; J45.909 Unspecified asthma, uncomplicated; F17.200 Nicotine dependence, unspecified, uncomplicated
CPT/HCPCS: 94640; 99283; 96372; 87880; J3490 ×2; J0561; J1100

== ENCOUNTER 2019-01-06 00:36 | Emergency (ER) | payer MEDICAID ==
[2019-01-06] MEDS ORDERED: CLINDAMYCIN HCL 150 MG CAPSULE PO ONE (03:35)
--- NOTE | 2019-01-06 03:38 | ER Document Report ---
ED General - General Chief Complaint: Toothache Stated Complaint: TOOTHACHE Time Seen by Provider: 01/06/19 02:52 Notes: Patient is a 28-year-old female without chronic medical problems who presents with pain to her left mandible. States that the pain is a shooting, moderate to severe pain that started gradually and has worsened since onset. Worsened by food and drink intake. Improved through ibuprofen. Has not seen a dentist regarding this concern. Denies fever or constitutional symptoms. No history of similar symptoms in the past. TRAVEL OUTSIDE OF THE [place] IN LAST 30 DAYS: No - Related Data Allergies/Adverse Reactions: No Known Allergies Allergy (Verified 07/14/17 18:28) Past Medical History - General Information source: Patient - Social History Smoking Status: Current Every Day Smoker Chew tobacco use (# tins/day): No Frequency of alcohol use: None Drug Abuse: None Family History: Reviewed & Not Pertinent Patient has suicidal ideation: No Patient has homicidal ideation: No Renal/ Medical History: Reports: Hx Kidney Stones. Denies: Hx Peritoneal Dialysis Past Surgical History: Reports: Hx Orthopedic Surgery - shoulder - Immunizations Immunizations up to date: Yes Hx Diphtheria, Pertussis, Tetanus Vaccination: Yes Review of Systems - Review of Systems Notes: Constitutional: Negative for fever. HENT: Negative for sore throat. Positive for dental pain Eyes: Negative for visual changes. Cardiovascular: Negative for chest pain. Respiratory: Negative for shortness of breath. Gastrointestinal: Negative for abdominal pain, vomiting or diarrhea. Genitourinary: Negative for dysuria. Musculoskeletal: Negative for back pain. Skin: Negative for rash. Neurological: Negative for headaches, weakness or numbness. 10 point ROS negative except as marked above and in HPI. Physical Exam - Vital signs Vitals: Temp Pulse Resp BP Pulse Ox 97.8 F 73 14 128/84 H 100 01/06/19 00:40 01/06/19 00:40 01/06/19 00:40 01/06/19 00:40 01/06/19 00:40 Interpretation: Normal Notes: PHYSICAL EXAMINATION: GENERAL: Well-appearing, well-nourished and in no acute distress. HEAD: Atraumatic, normocephalic. EYES: Pupils equal round and reactive to light, extraocular movements intact, sclera anicteric, conjunctiva are normal. ENT: nares patent, oropharynx clear without exudates. Moist mucous membranes. There is a cracked left mandibular molar, second from the back without s urrounding induration or evidence of a drainable fluid collection at the gumline NECK: Normal range of motion, supple without lymphadenopathy LUNGS: Breath sounds clear to auscultation bilaterally and equal. No wheezes rales or rhonchi. HEART: Regular rate and rhythm without murmurs ABDOMEN: Soft, nontender, normoactive bowel sounds. No guarding, no rebound. No masses appreciated. EXTREMITIES: Normal range of motion, no pitting or edema. No cyanosis. NEUROLOGICAL: No focal neurological deficits. Moves all extremities spontaneously and on command. PSYCH: Normal mood, normal affect. SKIN: Warm, Dry, normal turgor, no rashes or lesions noted. Course - Re-evaluation Re-evalutation: 01/06/19 03:36 Presentation is most consistent with likely an infected tooth. Airway is patent. Vitals within normal limits. Patient is able swallow without any difficulty. There is no significant facial swelling. No evidence of Elvis angina, apical abscess, or airway obstruction. Patient will be started on antibiotics. I've instructed to follow-up with dentistry as earliest ability for definitive management. At this time will discharge with return precautions and follow-up recommendations. Verbal discharge instructions given a the bedside and opportunity for questions given. Medication warnings reviewed. Patient is in agreement with this plan and has verbalized understanding of return precautions and the need for primary care follow-up in the next 24-72 hours. - Vital Signs Vital signs: Temp Pulse Resp BP Pulse Ox 97.8 F 73 14 128/84 H 100 01/06/19 00:40 01/06/19 00:40 01/06/19 00:40 01/06/19 00:40 01/06/19 00:40 Discharge - Discharge Clinical Impression: Pain, dental Condition: Good Disposition: HOME, SELF-CARE Additional Instructions: You have been seen for dental pain. It is very important that you follow-up with a dentist for definitive care. Please return if you develop fever greater than 101, swelling in your face, vomiting, difficulty breathing or swallowing, or any other symptoms that are concerning to you. For your pain: Take ibuprofen 600 mg and acetaminophen 1000 mg every 6 hours together as needed for pain. Prescriptions: Clindamycin HCl 300 mg PO TID #30 capsule
[2019-01-06 04:50] VITALS: BP 103/53
== END 2019-01-06 04:35 | disposition home or self-care (01) ==
LOC: ER 00:36
DX: K08.9 Disorder of teeth and supporting structures, unspecified (principal); F17.200 Nicotine dependence, unspecified, uncomplicated; Z87.442 Personal history of urinary calculi
CPT/HCPCS: 99282; J3490

== ENCOUNTER 2019-02-24 03:38 | Emergency (ER) | payer MEDICAID ==
[2019-02-24 03:46] VITALS: BP 106/52
--- NOTE | 2019-02-24 04:22 | ER Document Report ---
ED General - General Chief Complaint: Sore Throat Stated Complaint: SORE THROAT/URINARY COMPLAINTS Time Seen by Provider: 02/24/19 04:21 Notes: Patient is a 28 year old female that presents to the emergency department for chief complaint of sore throat and dysuria. Patient states his been having sore throat for about 2 days, she states she gets strep throat quite often, she is having pain with swallowing, but denies any difficulty speaking, or having a muffled voice. She thought she had a low-grade temperature, but denies having any chills, nausea, vomiting, chest pain, shortness of breath or cough. She does report having some dysuria as well and urinary frequency and is worried she may have urinary tract infection. Denies any vaginal bleeding or discharge. She currently rates her pain as a 2 out of 10 describes it as an ache in the back of her throat. Past Medical History: Denies chronic medical conditions Past Surgical History: Denies surgical history Social History: Admits to smoking cigarettes, denies alcohol or drug use. Family History: Reviewed and noncontributory for presenting illness Allergies: Reviewed, see documented allergy list. REVIEW OF SYSTEMS: Other than noted above, the 12 point review of systems was reviewed with the patient and were negative, all pertinent findings are included in the HPI. PHYSICAL EXAMINATION: Vital signs reviewed, nursing noted reviewed. GENERAL: Well-appearing, well-nourished and in no acute distress. HEAD: Atraumatic, normocephalic. EYES: Eyes appear normal, extraocular movements intact, sclera anicteric, conjunctiva are normal. ENT: nares patent, bilateral tonsillar erythema mild edema, there is a few exudates noted as well, moist mucous membranes. NECK: Normal range of motion, supple, bilateral anterior cervical tender lymphadenopathy. LUNGS: Breath sounds clear to auscultation bilaterally and equal. No wheezes rales or rhonchi. HEART: Regular rate and rhythm without murmurs ABDOMEN: Soft, mild suprapubic tenderness to palpation, normoactive bowel sounds. No rebound, guarding, or rigidity. No masses appreciated. EXTREMITIES: Nontender, good range of motion, no pitting or edema. NEUROLOGICAL: No focal neurological deficits. Moves all extremities spontaneously Motor and sensory grossly intact on exam. PSYCH: Normal mood, normal affect. SKIN: Warm, Dry, normal turgor, no rashes or lesions noted on exposed skin TRAVEL OUTSIDE OF THE [place] IN LAST 30 DAYS: No - Related Data Allergies/Adverse Reactions: No Known Allergies Allergy (Verified 07/14/17 18:28) Past Medical History - Social History Smoking Status: Current Every Day Smoker Family History: Reviewed & Not Pertinent Renal/ Medical History: Reports: Hx Kidney Stones. Denies: Hx Peritoneal Dialysis Past Surgical History: Reports: Hx Orthopedic Surgery - shoulder - Immunizations Immunizations up to date: Yes Hx Diphtheria, Pertussis, Tetanus Vaccination: Yes Physical Exam - Vital signs Vitals: Temp Pulse Resp BP Pulse Ox 98.1 F 88 16 106/52 L 98 02/24/19 03:45 02/24/19 03:45 02/24/19 03:45 02/24/19 03:45 02/24/19 03:45 Course - Re-evaluation Re-evalutation: Patient seen and examined vital signs reviewed. Laboratory data and/or imaging were ordered as appropriate for the patient's presenting symptoms and complaint, with consideration of any critical or life threatening conditions that may be associated with their obtained history and exam as noted above. Patient was treated with Augmentin, IM dexamethasone Results were reviewed when available and demonstrated positive UA, convincing of urinary tract infection, previous cultures reviewed resistant E. coli to ampicillin, will use Keflex and will also cover for possible strep pharyngitis. The patient was re-evaluated and was stable Evaluation was most consistent with acute pharyngitis, and urinary tract infection we will treat both with Augmentin, patient given dexamethasone in the ED, advised follow-up with the primary care. Results were discussed with the patient at this point, after careful consideration I feel that that patient can be discharged from the emergency department, the patient was educated treatments and reasons to return to the emergency department based on their presumed diagnosis as noted above, they were advised to followup with a primary care physician in 2-3 days. Patient was agreeable to plan of care. *Note is created using voice recognition software and may contain spelling, syntax or grammatical errors. Laboratory 02/24/19 05:15 Urine Color YELLOW Urine Appearance CLOUDY Urine pH 5.0 Ur Specific [place] 1.021 Urine Protein 100 H Urine Glucose (UA) NEGATIVE Urine Ketones NEGATIVE Urine Blood MODERATE H Urine Nitrite POSITIVE H Urine Bilirubin NEGATIVE Urine Urobilinogen NEGATIVE Ur Leukocyte Esterase LARGE H Urine WBC (Auto) >182 Urine RBC (Auto) 33 Urine Bacteria (Auto) 3+ Squamous Epi Cells Auto 1 Urine Mucus (Auto) OCC Urine Ascorbic Acid NEGATIVE Urine HCG, Qual NEGATIVE - Vital Signs Vital signs: Temp Pulse Resp BP Pulse Ox 98.1 F 88 16 106/52 L 98 02/24/19 03:45 02/24/19 03:45 02/24/19 03:45 02/24/19 03:45 02/24/19 03:45 - Laboratory Laboratory results interpreted by me: 02/24/19 05:15 Urine Protein 100 H Urine Blood MODERATE H Urine Nitrite POSITIVE H Ur Leukocyte Esterase LARGE H Discharge - Discharge Clinical Impression: Strep pharyngitis UTI (urinary tract infection) Qualifiers: Urinary tract infection type: site unspecified Hematuria presence: with hematuria Qualified Code(s): N39.0 - Urinary tract infection, site not specified; R31.9 - Hematuria, unspecified Condition: Stable Disposition: HOME, SELF-CARE Instructions: Sore Throat ([facility]), Cephalexin ([facility]), Urinary Tract Infection ([facility]) Additional Instructions: Please complete the entire course of antibiotics as prescribed, that will cover both your urinary tract infection, and if you do have strep throat will cover this as well, complete the entire course, and follow-up with your primary care physician, have also listed an ear nose and throat physician if you are interested in having tonsillectomy. Prescriptions: Cephalexin Monohydrate [Keflex 500 mg Capsule] 500 mg PO BID #20 capsule Referrals: OBI GUTIÉRREZ DO [ASSOCIATE] - Follow up in 3-5 days
[2019-02-24] MEDS ORDERED: DEXAMETHASONE SOD PHOS INJ 10 MG/1 ML VIAL IM ONE (04:37)
[2019-02-24] MEDS ORDERED: AMOXICILLIN TR/POT CLAVULANATE 500-125 MG TAB PO ONE (04:37)
[2019-02-24 05:47] LABS: APPEARANCE,URINE CLOUDY; BILIRUBIN,URINE NEGATIVE (NEGATIVE); COLOR,URINE YELLOW; GLUCOSE, URINE NEGATIVE (NEGATIVE); KETONES,URINE NEGATIVE (NEGATIVE); LEUKOCYTE ESTERASE,URINE LARGE (NEGATIVE); NITRITE,URINE POSITIVE (NEGATIVE); PROTEIN,URINE 100 mg/dL (NEGATIVE); URINE SPECIFIC GRAVITY 1.021; UROBILINOGEN,URINE NEGATIVE mg/dL (<2.0)
== END 2019-02-24 06:11 | disposition home or self-care (01) ==
LOC: ER 03:38
DX: J02.0 Streptococcal pharyngitis (principal); N39.0 Urinary tract infection, site not specified; R31.9 Hematuria, unspecified; F17.210 Nicotine dependence, cigarettes, uncomplicated
CPT/HCPCS: 99283; 96372; 87086; 81025; 87088; 81001; 87186; J3490; J1100

== ENCOUNTER 2020-01-08 09:16 | Inpatient (IN) | payer MEDICAID ==
[2020-01-08] MEDS ORDERED: OXYTOCIN 10 UNIT/ML VIAL ONE (09:21)
[2020-01-08] MEDS ORDERED: OXYTOCIN/0.9 % SODIUM CHLORIDE 30 UNIT/500 ML RTUINJ ONE (09:22)
[2020-01-08] MEDS ORDERED: MISOPROSTOL 0.2 MG TABLET ONE (09:22)
[2020-01-08] MEDS ORDERED: LIDOCAINE 1% INJ-PF (10 MG/ML) 30 ML SDV ONE (09:22)
[2020-01-08] MEDS ORDERED: OXYTOCIN/0.9 % SODIUM CHLORIDE 30 UNIT/500 ML RTUINJ IV PRN ×3 (09:43→17:11)
--- NOTE | 2020-01-08 09:57 | Admission Physical ---
Datetime Report Generated by CPN: 01/08/2020 09:57 CURRENT ADMISSION Chief Complaint: Scheduled Induction of Labor Chief Complaint Other: seen at office yesterday and scheduled for IOL d/t 41.3 wks Indication for Induction: Postterm Admit Impression : No Active Labor Admit Plan: Admit to Unit; Initiate Labor Augmentation Protocol Admit Plan- Other: CATA based on 25wk sono Late PNC on Subutex 8mg daily GBS neg ALLERGIES Medication Allergies: No Medication Allergies: No Known Allergies (07/14/2017) Latex: No Latex Allergies OBSTETRICAL HISTORY EDC: 12/28/2019 00:00 : 5 Para: 3 Term: 3 : 0 SAB: 1 IAB: 0 Ectopic: 0 Livin Cesareans: 0 VBACs: 0 Multiple Births: 0 PHYSICAL EXAM General: Normal HEENT: Deferred Neurologic: Normal Thyroid: Deferred Heart: Normal Lungs: Normal Breast: Deferred Back: Deferred Abdomen: Normal Genitourinary Exam: Normal Extremities: Normal DTRs: Deferred Pelvic Type: Adequate Vital Signs: Reviewed VAGINAL EXAM Dilatation: 5 Effacement: 80 Station: -1 MEMBRANES Membranes: Ruptured Amniotic Fluid Color: Clear FETUS A EGA: 41.4 Monitoring: External US FHR- Baseline: 135 Variability: Marked >25bpm Accelerations: 10X10 Decelerations: None FHR Category: Category II Presentation: Vertex Admit Comment: AROM clear fluid pt desires epidural INFORMED CONSENT Assignment: Sadie Carrera MD Signature: with User ID: [email or web address] : with User ID: [email or web address]
[2020-01-08 10:09] LABS: ABSOLUTE BASOPHILS # (AUTO) 0.1 10^3/uL (0.0-0.2); ABSOLUTE EOSINOPHILS # (AUTO) 0.5 10^3/uL (0.0-0.6); ABSOLUTE LYMPHOCYTES (AUTO) 3.3 10^3/uL (0.5-4.7); ABSOLUTE MONOCYTES (AUTO) 0.8 10^3/uL (0.1-1.4); ABSOLUTE NEUT (AUTO) 6.5 10^3/uL (1.7-8.2); BASOPHILS % (AUTO) 0.7 % (0-2); EOSINOPHILS % (AUTO) 4.5 % (0-6); HEMATOCRIT 33.4 % (36.0-47.0); HEMOGLOBIN 11.7 g/dL (12.0-15.5); MEAN CORPUSCULAR HEMOGLOBIN 32.1 pg (27.0-33.4); MEAN CORPUSCULAR HGB CONC 35.1 g/dL (32.0-36.0); MEAN CORPUSCULAR VOLUME 91 fl (80-97); MONOCYTES % (AUTO) 7.5 % (3-13); PLATELET COUNT 151 10^3/uL (150-450); RED BLOOD COUNT 3.66 10^6/uL (3.72-5.28); RED CELL DISTRIBUTION WIDTH 13.6 % (11.5-14.0); SEGMENTED NEUTROPHILS % (AUTO) 58.3 % (42-78); TOTAL CELLS COUNTED % (AUTO) 100 %; WHITE BLOOD COUNT 11.2 10^3/uL (4.0-10.5)
[2020-01-08 10:34] LABS: APPEARANCE,URINE SLIGHTLY-CLOUDY; BILIRUBIN,URINE NEGATIVE (NEGATIVE); COLOR,URINE YELLOW; GLUCOSE, URINE NEGATIVE (NEGATIVE); KETONES,URINE NEGATIVE (NEGATIVE); LEUKOCYTE ESTERASE,URINE NEGATIVE (NEGATIVE); NITRITE,URINE NEGATIVE (NEGATIVE); PROTEIN,URINE NEGATIVE (NEGATIVE); URINE SPECIFIC GRAVITY 1.017; UROBILINOGEN,URINE NEGATIVE mg/dL (<2.0)
[2020-01-08] MEDS ORDERED: EPHEDRINE SULFATE INJ 50 MG/1 ML AMPULE ONE (10:39)
[2020-01-08] MEDS ORDERED: BUPIVACAINE HCL 0.25 % INJ/PF (2.5 MG/1 ML) 30 ML VIAL ONE (10:40)
[2020-01-08] MEDS ORDERED: FENTANYL/BUPIVACAINE/NS/PF 300 MCG/150 ML RTUINJ EPI ONE (10:40)
[2020-01-08 11:10] LABS: URINE AMPHETAMINES SCREEN NEGATIVE; URINE BARBITURATES SCREEN NEGATIVE; URINE BENZODIAZEPINES SCREEN NEGATIVE; URINE COCAINE SCREEN NEGATIVE; URINE MARIJUANA (THC) SCREEN NEGATIVE; URINE METHADONE SCREEN NEGATIVE; URINE PHENCYCLIDINE SCREEN NEGATIVE
--- NOTE | 2020-01-08 15:04 | Warning Signs in Babies ---
VOD Warning Signs Datetime Report Generated by [facility]: 01/08/2020 15:03 VOD#608 -Warning Signs in Babies: Needs to be viewed. (01/08/2020 09:30:Belkis Harper RN)
--- NOTE | 2020-01-08 16:18 | Delivery Summary ---
Del Sum A-C Datetime Report Generated by CPN: 01/08/2020 16:18 DELIVERY PERSONNEL DELIVERY PERSONNEL: [id number] Delivery Doctor:: Christelle Burr CNM Labor and Delivery Nurse:: Belkis Harper RNbusiness database analyst Nurse:: Sharda Torres RN Nursery Nurse:: Gale Marshall RN Nursery Nurse:: CHRISTIANO Wolf Tech/PHARMACEUTICAL SPECIALTY REPRESENTATIVE: Ermelinda Monteiro, ST MATERNAL INFORMATION Delivery Anesthesia: Epidural Medications After Delivery: Pitocin 30 Units in 500ml NS/D5W Delivery QBL: 50 Maternal Complications: None Provider Comments: SVDVF over intact perineum, OA to DEEPTI, ant shoulder delivered, followed by post shoulder, body and cord. vigorous, placed on mothers abd. Cord clamped x2 then cut per FOB. Cord blood collected. Placenta spont via lowe. Inspection of perineum, very superficial perineal lac, very small and did not need repair. Bleeding stabilized, mother and stable. LABOR SUMMARY EDC: 12/28/2019 00:00 No. Babies in Womb: 1 Attempted: No Labor Anesthesia: Epidural LABOR INFORMATION Reason for Induction: Post Dates Onset of Labor: 01/08/2020 09:43 Complete Dilatation: 01/08/2020 13:46 Oxytocin: Induction Group B Beta Strep: negative Antibiotics # of Doses: 0 Antibiotics Time of Last Dose: N/A Name of Antibiotic Given: N/A Steroids Given: None Reason Steroids Not Administered: Not Applicable MEMBRANES Membranes Rupture Method: Artificial Rupture of Membranes: 01/08/2020 09:43 Length of Rupture (hr): 4.98 Amniotic Fluid Color: Clear Amniotic Fluid Amount: Moderate Amniotic Fluid Odor: None STAGES OF LABOR Stage 1 hr: 4 Stage 1 min: 3 Stage 2 hr: 0 Stage 2 min: 56 Stage 3 hr: 0 Stage 3 min: 4 Total Time in Labor hr: 5 Total Time in Labor min: 3 VAGINAL DELIVERY Episiotomy: None Laceration #1: Perineal Laceration Extension #1: First Degree Laceration Repair: Not Applicable Laceration Repair Note: very superficial no repair needed Sponge Count Correct: Yes Sharps Count Correct: Yes CSECTION DELIVERY Primary Indication: N/A Secondary Indication: N/A CSection Incidence: N/A Labor: N/A Elective: N/A CSection Incision: N/A BABY A INFORMATION Infant Delivery Date/Time: 01/08/2020 14:42 Method of Delivery: Vaginal Born in Route : No : N/A Forceps: N/A Vacuum Extraction: N/A Shoulder Dystocia : No PRESENTATION/POSITION BABY A Presentation: Cephalic Cephalic Presentation: Vertex Vertex Position: Occipital Anterior Breech Presentation: N/A PLACENTA INFORMATION BABY A Placenta Delivery Time : 01/08/2020 14:46 Placenta Method of Delivery: Spontaneous Placenta Status: Delivered SCORES BABY A Heart Rate 1 min: >100 bpm Resp Effort 1 min: Slow, Irregular Reflex Irritability 1 min: Cough or Sneeze or Pulls Away Muscle Tone 1 min: Active Motion Color 1 min: Body [place], Extremities Blue Resuscitation Effort 1 min: Tactile Stimulation SCORE 1 MIN: 8 Heart Rate 5 min: >100 bpm Resp Effort 5 min: Good Cry Reflex Irritability 5 min: Cough or Sneeze or Pulls Away Muscle Tone 5 min: Active Motion Color 5 min: Body [place], Extremities Blue SCORE 5 MIN: 9 INFANT INFORMATION BABY A Gestational Age at Delivery: 41.4 Gestational Status: Late Term- 41- 41.6 Weeks Infant Outcome : Liveborn Infant Condition : Stable Infant Sex: Female IDENTIFICATION BABY A Verification Date/Time: 01/08/2020 15:12 ID Band Number: [id number] Mother's Name Verified: Yes Infant RN Verifying Infant: JNiebuhr,RN Additional Verifying Personnel: KPorzicherry,US WEIGHT/LENGTH BABY A Infant Birthweight (gm): 3802 Weight (lb): 8 Infant Weight (oz): 6 Infant Length (in): 20.50 Length (cm): 52.07 CORD INFORMATION BABY A No. Cord Vessels: 3 Nuchal Cord : N/A Cord Blood Taken: Yes-For Storage (Mom's Blood type +) Infant Suction: None ASSESSMENT BABY A Physical Findings at Delivery: Within Normal Limits Skin to Skin: Yes Transferred To: Remains with Mother BABY B INFORMATION : N/A SIGNATURES Assignment: Sadie Carrera MD Signature: with User ID: [email or web address] : with User ID: [email or web address] : I was personally available for consultation and serving as supervising physician for the MLP.
[2020-01-08] MEDS ORDERED: PROMETHAZINE HCL 25 MG SUPP.RECT PR PRN (17:10)
[2020-01-08] MEDS ORDERED: ZOLPIDEM TARTRATE 5 MG TABLET PO PRN ×2 (17:10→17:11)
[2020-01-08] MEDS ORDERED: ACETAMINOPHEN WITH CODEINE #3 TABLET PO PRN ×2 (17:10)
[2020-01-08] MEDS ORDERED: DIBUCAINE 1% OINTMENT 28 GM TP PRN ×2 (17:10→17:11)
[2020-01-08] MEDS ORDERED: GLYCERIN/WITCH HAZEL LEAF 1 EACH MED..WIPE TP PRN (17:10)
[2020-01-08] MEDS ORDERED: MEASLES,MUMPS&RUBELLA VACC/PF 0.5 ML VIAL SUBCUT PRN ×2 (17:10→17:11)
[2020-01-08] MEDS ORDERED: PSEUDOEPHEDRINE HCL 30 MG TABLET PO PRN (17:10)
[2020-01-08] MEDS ORDERED: PROMETHAZINE HCL 25 MG TABLET PO PRN (17:10)
[2020-01-08] MEDS ORDERED: MAGNESIUM HYDROXIDE SUSP 30 ML UDCUP PO PRN (17:10)
[2020-01-08] MEDS ORDERED: PROMETHAZINE HCL INJ 25 MG/1 ML VIAL IV PRN (17:10)
[2020-01-08] MEDS ORDERED: BENZOCAINE/MENTHOL AEROSOL SPRAY 56 ML TOP PRN ×2 (17:10→17:11)
[2020-01-08] MEDS ORDERED: DIPH/PERTUSS(ACELL)/TETANUS VAC/PF 0.5 ML SYR (>=10YO) IM PRN ×2 (17:10→17:11)
[2020-01-08] MEDS ORDERED: NA PHOS,M-B/NA PHOS,DI-BA (ADULT) 133 ML ENEMA PR PRN (17:10)
[2020-01-08] MEDS ORDERED: ACETAMINOPHEN 325 MG TABLET PO PRN (17:10)
[2020-01-08] MEDS ORDERED: DIPHENHYDRAMINE HCL 25 MG CAPSULE PO PRN (17:10)
[2020-01-08] MEDS ORDERED: DOCUSATE SODIUM 100 MG CAPSULE PO SCH (18:00)
[2020-01-08] MEDS ORDERED: (PENDING PHARMACY ID) (Buprenorphine Hcl [Subutex 8 Mg Sublingual Tablet] 1 TAB) SL SCH (18:00)
[2020-01-08] MEDS ORDERED: FERROUS SULFATE 325 MG TABLET PO SCH (18:00)
[2020-01-08] MEDS: DOCUSATE SODIUM 100 MG CAPSULE PO SCH (18:03)
[2020-01-08] MEDS: FERROUS SULFATE 325 MG TABLET PO SCH ×2 (18:03→18:05)
[2020-01-08] MEDS: BUPRENORPHINE HCL 2 MG SUBLINGUAL TABLET SL SCH (20:27)
[2020-01-08] MEDS: IBUPROFEN 800 MG TABLET PO SCH (21:11)
[2020-01-08] MEDS: FAMOTIDINE 20 MG TABLET PO SCH (21:12)
[2020-01-08] MEDS ORDERED: IBUPROFEN 800 MG TABLET PO SCH (22:00)
[2020-01-09] MEDS: IBUPROFEN 800 MG TABLET PO SCH ×3 (05:47→21:43)
[2020-01-09 07:54] LABS: HEMATOCRIT 32.1 % (36.0-47.0); HEMOGLOBIN 11.3 g/dL (12.0-15.5); MEAN CORPUSCULAR HEMOGLOBIN 31.8 pg (27.0-33.4); MEAN CORPUSCULAR HGB CONC 35.1 g/dL (32.0-36.0); MEAN CORPUSCULAR VOLUME 91 fl (80-97); PLATELET COUNT 164 10^3/uL (150-450); RED BLOOD COUNT 3.54 10^6/uL (3.72-5.28); RED CELL DISTRIBUTION WIDTH 13.5 % (11.5-14.0); WHITE BLOOD COUNT 14.5 10^3/uL (4.0-10.5)
[2020-01-09] MEDS ORDERED: PRENATAL VITAMIN W DHA CAPSULE PO SCH (10:00)
[2020-01-09] MEDS ORDERED: SENNOSIDES/DOCUSATE 8.6-50 MG 1 EACH TABLET PO SCH (10:00)
--- NOTE | 2020-01-09 10:04 | PDOC PROGRESS REPORT ---
Subjective-OB Progress Note for:: 01/09/20 Subjective: Pt doing well, no concerns, she reports light bleeding, reg diet and voiding without difficulty Physical Exam (OB) Vital Signs: Temp Pulse Resp BP Pulse Ox 97.5 F 57 L 16 116/78 97 01/09/20 07:17 01/09/20 07:17 01/09/20 07:17 01/09/20 07:17 01/09/20 07:17 Intake & Output 01/08/20 01/09/20 01/10/20 06:59 06:59 06:59 Weight 66 kg - PIH/Pre-Eclampsia Clonus: Negative Headache: Absent Epigastric Pain: No Visual Changes: No - Lochia Lochia Amount: Scant < 10 ml Lochia Color: Rubra/Red - Abdomen Description: Soft Hernia Present: No Fundal Description: Firm, Midline Fundal Height: u/u - u/2 Objective-Diagnostic Laboratory: 01/09/20 07:34 01/08/20 01/08/20 01/08/20 09:30 09:52 09:52 WBC 11.2 H RBC 3.66 L Hgb 11.7 L Hct 33.4 L MCV 91 MCH 32.1 MCHC 35.1 RDW 13.6 Plt Count 151 Seg Neutrophils % 58.3 Urine Color YELLOW Urine Appearance SLIGHTLY-CLOUDY Urine pH 7.0 Ur Specific [place] 1.017 Urine Protein NEGATIVE Urine Glucose (UA) NEGATIVE Urine Ketones NEGATIVE Urine Blood NEGATIVE Urine Nitrite NEGATIVE Ur Leukocyte Esterase NEGATIVE Urine WBC (Auto) 1 Blood Type B POSITIVE Antibody Screen NEGATIVE 01/09/20 07:34 WBC 14.5 H RBC 3.54 L Hgb 11.3 L Hct 32.1 L MCV 91 MCH 31.8 MCHC 35.1 RDW 13.5 Plt Count 164 Seg Neutrophils % Urine Color Urine Appearance Urine pH Ur Specific [place] Urine Protein Urine Glucose (UA) Urine Ketones Urine Blood Urine Nitrite Ur Leukocyte Esterase Urine WBC (Auto) Blood Type Antibody Screen Assessment and Plan(PN) - Assessment and Plan (1) Post-term , 40-42 weeks of gestation Is this a current diagnosis for this admission?: Yes (2) Vaginal delivery Is this a current diagnosis for this admission?: Yes - Time Spent with Patient Time with patient: Less than 15 minutes Medications reviewed and adjusted accordingly: Yes - Disposition Anticipated Discharge: Home Within: within 24 hours
[2020-01-09] MEDS: PRENATAL VITAMIN W DHA CAPSULE PO SCH (10:27)
[2020-01-09] MEDS: FAMOTIDINE 20 MG TABLET PO SCH ×2 (10:27→21:44)
[2020-01-09] MEDS: FERROUS SULFATE 325 MG TABLET PO SCH ×4 (10:27→18:27)
[2020-01-09] MEDS: BUPRENORPHINE HCL 2 MG SUBLINGUAL TABLET SL SCH ×2 (10:27→18:25)
[2020-01-09] MEDS: SENNOSIDES/DOCUSATE 8.6-50 MG 1 EACH TABLET PO SCH (10:27)
[2020-01-09] MEDS: DOCUSATE SODIUM 100 MG CAPSULE PO SCH ×2 (10:28→18:25)
[2020-01-10] MEDS: IBUPROFEN 800 MG TABLET PO SCH (05:47)
[2020-01-10 07:35] VITALS: BP 138/81
[2020-01-10] MEDS: PRENATAL VITAMIN W DHA CAPSULE PO SCH (09:13)
[2020-01-10] MEDS: DOCUSATE SODIUM 100 MG CAPSULE PO SCH (09:13)
[2020-01-10] MEDS: SENNOSIDES/DOCUSATE 8.6-50 MG 1 EACH TABLET PO SCH (09:13)
[2020-01-10] MEDS: FAMOTIDINE 20 MG TABLET PO SCH (09:13)
[2020-01-10] MEDS: FERROUS SULFATE 325 MG TABLET PO SCH ×2 (09:13)
[2020-01-10] MEDS: BUPRENORPHINE HCL 2 MG SUBLINGUAL TABLET SL SCH (10:13)
--- NOTE | 2020-01-10 11:07 | PDOC DISCHARGE SUMMARY ---
Impression - Admit/DC Date/PCP Admission Date/Primary Care Provider: 01/08/20 09:16 Discharge Date: 01/10/20 - Discharge Diagnosis (1) Post-term , 40-42 weeks of gestation Is this a current diagnosis for this admission?: Yes (2) Vaginal delivery Is this a current diagnosis for this admission?: Yes - Additional Information Resuscitation Status: Full Code Discharge Diet: Regular Discharge Activity: Balance Activity w/Rest, Pelvic Rest [facility] (Please call A for a 4 week follow up.) Prescriptions: Ibuprofen [Motrin 800 mg Tablet] 800 mg PO Q8HP PRN #60 tablet PRN Reason: Home Medications: Buprenorphine HCl [Subutex 8 mg Sublingual Tablet] 1 tab SL BID 05/24/17 Vit/Iron Fum/Folic AC [ Tablet] 1 each PO DAILY 05/24/17 Ferrous Sulfate [Feosol 325 mg Tablet] 325 mg PO BID #60 tablet 07/16/17 Ibuprofen [Motrin 800 mg Tablet] 800 mg PO Q8HP PRN #60 tablet 01/10/20 HPI Gestational Age: 41.4 Reason(s) for Admission: Induction of Labor Procedures: NST Intrapartum Procedure(s): Spontaneous Vaginal Delivery Complication(s): Laceration-Perineal Laceration-Degree: 1st Results Laboratory Results: WBC 14.5 10^3/uL (4.0-10.5) H 01/09/20 07:34 RBC 3.54 10^6/uL (3.72-5.28) L 01/09/20 07:34 Hgb 11.3 g/dL (12.0-15.5) L 01/09/20 07:34 Hct 32.1 % (36.0-47.0) L 01/09/20 07:34 MCV 91 fl (80-97) 01/09/20 07:34 MCH 31.8 pg (27.0-33.4) 01/09/20 07:34 MCHC 35.1 g/dL (32.0-36.0) 01/09/20 07:34 RDW 13.5 % (11.5-14.0) 01/09/20 07:34 Plt Count 164 10^3/uL (150-450) 01/09/20 07:34 Lymph % (Auto) 29.0 % (13-45) 01/08/20 09:52 [place] % (Auto) 7.5 % (3-13) 01/08/20 09:52 Eos % (Auto) 4.5 % (0-6) 01/08/20 09:52 Baso % (Auto) 0.7 % (0-2) 01/08/20 09:52 Absolute Neuts (auto) 6.5 10^3/uL (1.7-8.2) 01/08/20 09:52 Absolute Lymphs (auto) 3.3 10^3/uL (0.5-4.7) 01/08/20 09:52 Absolute Monos (auto) 0.8 10^3/uL (0.1-1.4) 01/08/20 09:52 Absolute Eos (auto) 0.5 10^3/uL (0.0-0.6) 01/08/20 09:52 Absolute Basos (auto) 0.1 10^3/uL (0.0-0.2) 01/08/20 09:52 Seg Neutrophils % 58.3 % (42-78) 01/08/20 09:52 Urine Color YELLOW 01/08/20 09:30 Urine Appearance SLIGHTLY-CLOUDY 01/08/20 09:30 Urine pH 7.0 (5.0-9.0) 01/08/20 09:30 Ur Specific [place] 1.017 01/08/20 09:30 Urine Protein NEGATIVE mg/dL (NEGATIVE) 01/08/20 09:30 Urine Glucose (UA) NEGATIVE mg/dL (NEGATIVE) 01/08/20 09:30 Urine Ketones NEGATIVE mg/dL (NEGATIVE) 01/08/20 09:30 Urine Blood NEGATIVE (NEGATIVE) 01/08/20 09:30 Urine Nitrite NEGATIVE (NEGATIVE) 01/08/20 09:30 Urine Bilirubin NEGATIVE (NEGATIVE) 01/08/20 09:30 Urine Urobilinogen NEGATIVE mg/dL (<2.0) 01/08/20 09:30 Ur Leukocyte Esterase NEGATIVE (NEGATIVE) 01/08/20 09:30 Urine WBC (Auto) 1 /HPF 01/08/20 09:30 Squamous Epi Cells Auto 6 /HPF 01/08/20 09:30 Urine Mucus (Auto) RARE /LPF 01/08/20 09:30 Urine Ascorbic Acid NEGATIVE (NEGATIVE) 01/08/20 09:30 Urine Opiates Screen NEGATIVE 01/08/20 09:30 Urine Methadone Screen NEGATIVE 01/08/20 09:30 Ur Barbiturates Screen NEGATIVE 01/08/20 09:30 Ur Phencyclidine Scrn NEGATIVE 01/08/20 09:30 Ur Amphetamines Screen NEGATIVE 01/08/20 09:30 U Benzodiazepines Scrn NEGATIVE 01/08/20 09:30 Urine Cocaine Screen NEGATIVE 01/08/20 09:30 U Marijuana (THC) Screen NEGATIVE 01/08/20 09:30 RPR NONREACTIVE (NONREACTIVE) 01/08/20 09:52 Blood Type B POSITIVE 01/08/20 09:52 Antibody Screen NEGATIVE 01/08/20 09:52 Plan Plan of Treatment: f/u at [facility] for PPCK in 4 wks Time Spent: Less than 30 Minutes
== END 2020-01-10 12:40 | disposition home or self-care (01) | DRG 807 ==
LOC: LR 09:16 → 2S 17:00
PROVIDERS: ADMIT Student in an Organized Health Care Education/Training Program; ATTEND Student in an Organized Health Care Education/Training Program
PROC: 10E0XZZ Delivery of Products of Conception, External Approach (ICD-10-PCS; principal; 2020-01-08)
DX: O48.0 Post-term pregnancy (principal); Z37.0 Single live birth; O99.334 Smoking (tobacco) complicating childbirth; F17.210 Nicotine dependence, cigarettes, uncomplicated; O70.0 First degree perineal laceration during delivery; Z3A.41 41 weeks gestation of pregnancy
CPT/HCPCS: 1967; 36415; 80307; 81001; 85025; 85027; 86592; 86850; 86900; 86901; 94760; J0571; J2590; J3010; J3490